=== PATIENT | female | born 1935 | race Caucasian/White ===

== ENCOUNTER 2017-06-09 09:53 | Emergency (ER) | payer OTHER ==
[~2017-06-09] VITALS: Ht 170.2 cm; Wt 79.4 kg
[~2017-06-09 09:53] MED LIST: ACETAMINOPHEN325 MG PO; ADVAIR 100-501 EACH; ALLEGRA ALLERG180 MG; ALPHAGAN P10 ML OPHTHALMIC; ANUSOL1 EACH RC; ARTIFICIAL TEAR15 M1 OPHTHALMIC; ASPIRIN EC81 M1 PO; B COMPLEX-VITA1 EACH PO; CALCIUM 600 +1 EAC1 PO; CIPRO250 M1 PO; CIPROFLOXACIN500 M1 PO; CITRATE OF MAG296 ML PO; FISH OIL 1,2001 EAC3 PO; FLAGYL 250 MG250 MG PO; FLAGYL500 MG PO; FLEXERIL PO; GARLIC OIL1 EACH PO; GLYCOLAX POWDER17 G1; HYDROCODON-ACE1 EAC7 PO; HYDROCODONE-AP1 EAC6 PO; LIPITOR10 MG PO; LISINOPRIL20 MG PO; MEDROLDOSEPACK PO; METRONIDAZOLE GEL TOP; MULTIVITAMINS1 EAC7 PO; NORCO 5-325 TA1 EACH PO; OMEGA-31000 M1 PO; PROAIR HFA8.5 GM IH; RESTASIS1 EACH; SYNTHROID25 MCG PO; SYSTANE 0.3-0.1 EACH; SYSTANE 0.3-0.1 EACH OP; TRAVATAN 0.004%5 ML; ULTRAM 50MG TAB50 MG PO; VALIUM5 MG PO; VITAMIN C + RO500 MG PO; VITAMINC500 PO; ZOFRAN4 MG PO
[2017-06-09] MEDS ORDERED: AMOXICILLIN 50500 MG PO (10:08)
[2017-06-09] MEDS ORDERED: PROMETHAZINE/C118 ML PO (10:09)
[2017-06-09 12:13] LABS: ABSOLUTE EOSINOPHILS 0.1 thou/uL (0.0-0.7); ABSOLUTE LYMPHOCYTES 1.7 thou/uL (0.8-5.3); ABSOLUTE MONOCYTES 0.8 thou/uL (0.0-1.2); ABSOLUTE NEUTROPHILS 3.8 thou/uL (1.6-8.1); BASOPHILS 0.5 %; EOSINOPHILS 0.9 %; HEMATOCRIT 40.7 % (37.0-47.0); HEMOGLOBIN 13.7 gm/dL (12.0-15.0); LYMPHOCYTES 26.4 %; MCH 31.9 pg (26.0-34.0); MCHC 33.6 g/dL (28.0-37.0); MCV 95.1 fL (80.0-100.0); MONOCYTES 11.9 %; MPV 8.8 fl. (7.2-11.1); NUCLEATED RBCS 0 /100WBC; PLATELET COUNT* 162 thou/uL (150-400); POLYS 60.3 %; RBC 4.28 mil/uL (4.20-5.00); RDW-CV 12.9 % (10.5-14.5); WBC 6.4 thou/uL (4.0-11.0)
[2017-06-09] MEDS ORDERED: PREDNISONE 20 M20 M1 PO (12:24)
[2017-06-09] MEDS ORDERED: PROAIR HFA8.5 GM INH (12:24)
[2017-06-09] MEDS ORDERED: TESSALON PERLE100 MG PO (12:24)
[2017-06-09 12:26] LABS: CALCIUM 8.1 mg/dL (8.5-10.1); POTASSIUM 4.6 mmol/L (3.5-5.1)
[2017-06-09 12:30] LABS: ALBUMIN 3.7 g/dL (3.4-5.0); TOTAL BILIRUBIN 0.6 mg/dL (<0.1-1.0); TOTAL PROTEIN 6.9 g/dL (6.4-8.2)
[2017-06-09 13:18] VITALS: BP 106/61
== END 2017-06-09 13:19 | disposition home or self-care (01) ==
LOC: M.ERS 09:53
PROVIDERS: Nurse Practitioner Family
DX: J20.9 Acute bronchitis, unspecified (principal); I10 Essential (primary) hypertension; E03.9 Hypothyroidism, unspecified; E78.00 Pure hypercholesterolemia, unspecified; H40.9 Unspecified glaucoma; Z98.890 Other specified postprocedural states; Z87.19 Personal history of other diseases of the digestive system

== ENCOUNTER 2019-08-05 08:07 | Emergency (ER) | payer OTHER ==
[~2019-08-05] VITALS: Ht 162.6 cm; Wt 81.7 kg
[~2019-08-05 08:07] MED LIST changes: +AMOXICILLIN 50500 MG PO; +PREDNISONE 20 M20 M1 PO; +PROAIR HFA8.5 GM INH; +PROMETHAZINE/C118 ML PO; +TESSALON PERLE100 MG PO
[2019-08-05] MEDS ORDERED: METROGEL-VAGINA70 GM VAG (08:36)
[2019-08-05] MEDS ORDERED: DORZOLAMIDE HCL10 ML OPHTHALMIC (08:37)
[2019-08-05] MEDS ORDERED: VYZULTA5 ML OPHTHALMIC (08:37)
[2019-08-05] MEDS ORDERED: TIMOLOL MALEATE5 M2 OPHTHALMIC (08:37)
[2019-08-05] MEDS ORDERED: MONTELUKAST SODI4 M1 PO (08:37)
[2019-08-05] MEDS ORDERED: FLONASE 0.05%50 MCG NARES (08:38)
[2019-08-05] MEDS ORDERED: CHILDREN'S ZYRT10 M1 PO (08:38)
[2019-08-05] MEDS ORDERED: OMEPRAZOLE40 MG PO (08:38)
[2019-08-05] MEDS ORDERED: FLOVENT HFA10.6 GM INH (08:40)
[2019-08-05 08:56] LABS: ABSOLUTE BASOPHILS 0.1 thou/uL (0.0-0.2); ABSOLUTE EOSINOPHILS 0.2 thou/uL (0.0-0.7); ABSOLUTE LYMPHOCYTES 1.6 thou/uL (0.8-5.3); ABSOLUTE MONOCYTES 0.7 thou/uL (0.0-1.2); BASOPHILS 0.7 %; EOSINOPHILS 2.5 %; HEMATOCRIT 40.2 % (37.0-47.0); HEMOGLOBIN 13.7 gm/dL (12.0-15.0); LYMPHOCYTES 21.3 %; MCH 31.5 pg (26.0-34.0); MCHC 34.2 g/dL (28.0-37.0); MCV 92.2 fL (80.0-100.0); MPV 8.8 fl. (7.2-11.1); NUCLEATED RBCS 0 /100WBC; PLATELET COUNT* 229 thou/uL (150-400); POLYS 66.5 %; RBC 4.36 mil/uL (4.20-5.00); WBC 7.5 thou/uL (4.0-11.0)
[2019-08-05 09:01] LABS: CALCIUM 8.7 mg/dL (8.5-10.1); CREATININE 0.9 mg/dL (0.6-1.3); POTASSIUM 4.2 mmol/L (3.5-5.1)
[2019-08-05 09:08] LABS: URINE BILIRUBIN NEGATIVE (Negative); URINE BLOOD TRACE (Negative); URINE CLARITY CLOUDY; URINE COLOR YELLOW; URINE GLUCOSE-RANDOM NEGATIVE (Negative); URINE KETONES NEGATIVE (Negative); URINE LEUKOCYTES-REFLEX NEGATIVE (Negative); URINE NITRITE-REFLEX NEGATIVE (Negative); URINE PROTEIN NEGATIVE (Negative); URINE SPECIFIC GRAVITY <= 1.005 (1.005-1.030); URINE UROBILINOGEN 0.2 E.U./dl (0.2-1.0)
[2019-08-05 09:15] LABS: BACTERIA-REFLEX >30 Many /HPF (None Seen); CASTS None Seen /LPF (None Seen); CRYSTALS None Seen /LPF (None Seen); MUCUS 0-3 Light strn/LPF (None Seen); SQUAMOUS 0-3 Few /LPF (0-3); URINE RBC 0-2 Rare /HPF (0-2); URINE WBC-REFLEX 0-5 Rare /HPF (0-5)
[2019-08-05 09:19] LABS: ALBUMIN 3.8 g/dL (3.4-5.0); TOTAL BILIRUBIN 0.8 mg/dL (<0.1-1.0); TOTAL PROTEIN 7.4 g/dL (6.4-8.2)
--- NOTE | 2019-08-05 09:48 | EKG ---
[place] [address] ELECTROCARDIOGRAM REPORT Name: KALYAN FINN Room: [facility]#: [id number] Admission: 08/05/19 Attend Phys: Discharge: Date of : 35 Date of Service: 08/05/19 0849 Report #: [id number] THIS REPORT FOR: //name// [facility] ED Test Date: 2019-08-05 Test Time: 08:49:27 Pat Name: KALYAN FINN Department: Room: Gender: F Director [employer]: : 1935 Requested By: Donnie Obando Order Number: [id number] MD: Satish Yepez Measurements Intervals [place] Rate: 64 P: 54 MS: 179 QRS: 10 QRSD: 105 T: 33 QT: 421 QTc: 435 Interpretive Statements Sinus rhythm Probable left atrial enlargement Low voltage, precordial leads Left ventricular hypertrophy Compared to ECG 03/11/2015 11:05:10 Low QRS voltage now present Electronically Signed On 08-05-2019 9:46:58 ASSESSMENT MANAGER by Satish Yepez [email or web address] <ELECTRONICALLY SIGNED> By: Satish Yepez MD, [facility] 08/05/19 0946 0849 0849 Satish Yepez MD, [facility] /EPI
[2019-08-05] MEDS ORDERED: TRAMADOL 50 MG50 MG PO (10:43)
[2019-08-05 10:53] VITALS: BP 138/69
== END 2019-08-05 10:55 | disposition home or self-care (01) ==
LOC: M.ERS 08:07
PROVIDERS: Emergency Medicine
DX: R10.9 Unspecified abdominal pain (principal); I10 Essential (primary) hypertension; E78.00 Pure hypercholesterolemia, unspecified; E03.9 Hypothyroidism, unspecified

== ENCOUNTER 2019-11-15 08:38 | Emergency (ER) | payer OTHER ==
[~2019-11-15] VITALS: Ht 162.6 cm; Wt 81.7 kg
[~2019-11-15 08:38] MED LIST changes: +CHILDREN'S ZYRT10 M1 PO; +DORZOLAMIDE HCL10 ML OPHTHALMIC; +FLONASE 0.05%50 MCG NARES; +FLOVENT HFA10.6 GM INH; +METROGEL-VAGINA70 GM VAG; +MONTELUKAST SODI4 M1 PO; +OMEPRAZOLE40 MG PO; +TIMOLOL MALEATE5 M2 OPHTHALMIC; +TRAMADOL 50 MG50 MG PO; +VYZULTA5 ML OPHTHALMIC
[2019-11-15 09:07] LABS: ABSOLUTE EOSINOPHILS 0.2 thou/uL (0.0-0.7); ABSOLUTE LYMPHOCYTES 0.8 thou/uL (0.8-5.3); ABSOLUTE MONOCYTES 0.7 thou/uL (0.0-1.2); BASOPHILS 0.2 %; EOSINOPHILS 2.8 %; HEMATOCRIT 36.3 % (37.0-47.0); HEMOGLOBIN 12.7 gm/dL (12.0-15.0); LYMPHOCYTES 12.5 %; MCH 32.2 pg (26.0-34.0); MONOCYTES 10.3 %; MPV 8.1 fl. (7.2-11.1); NUCLEATED RBCS 0 /100WBC; PLATELET COUNT* 218 thou/uL (150-400); POLYS 74.2 %; RBC 3.95 mil/uL (4.20-5.00); RDW-CV 14.6 % (10.5-14.5); WBC 6.8 thou/uL (4.0-11.0)
[2019-11-15 09:17] LABS: POTASSIUM 3.8 mmol/L (3.5-5.1)
[2019-11-15 09:34] LABS: ALBUMIN 3.5 g/dL (3.4-5.0); TOTAL BILIRUBIN 0.4 mg/dL (<0.1-1.0); TOTAL PROTEIN 6.9 g/dL (6.4-8.2)
[2019-11-15 09:54] LABS: URINE BILIRUBIN NEGATIVE (Negative); URINE BLOOD TRACE (Negative); URINE CLARITY CLEAR; URINE COLOR YELLOW; URINE GLUCOSE-RANDOM NEGATIVE (Negative); URINE KETONES NEGATIVE (Negative); URINE LEUKOCYTES-REFLEX NEGATIVE (Negative); URINE NITRITE-REFLEX NEGATIVE (Negative); URINE PROTEIN NEGATIVE (Negative); URINE SPECIFIC GRAVITY <= 1.005 (1.005-1.030); URINE UROBILINOGEN 0.2 E.U./dl (0.2-1.0)
[2019-11-15 13:55] VITALS: BP 157/73
--- NOTE | 2019-11-15 15:30 | EKG ---
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 : 1935 Requested By: Josue Castro Order Number: [id number] MD: Forrest Kuhn Measurements Intervals [place] Rate: 77 P: 73 GA: 197 QRS: 12 QRSD: 104 T: 1 QT: 376 QTc: 426 Interpretive Statements Sinus rhythm Probable left atrial enlargement Low voltage, precordial leads Abnormal R-wave progression, early transition Left ventricular hypertrophy Baseline wander in lead(s) V5 Compared to ECG 08/05/2019 08:49:27 No significant changes Electronically Signed On 11-15-2019 15:28:51 CDT by Forrest Kuhn [email or web address] <ELECTRONICALLY SIGNED> By: Forrest Kuhn MD, [facility] 11/15/19 1528 0847 0847 Forrest Kuhn MD, FAC /EPI
== END 2019-11-15 13:55 | disposition home or self-care (01) ==
LOC: M.ERS 08:38
PROVIDERS: Family Medicine
DX: R10.30 Lower abdominal pain, unspecified (principal); I10 Essential (primary) hypertension; E78.00 Pure hypercholesterolemia, unspecified; H40.9 Unspecified glaucoma; R60.0 Localized edema; E03.9 Hypothyroidism, unspecified; Z79.82 Long term (current) use of aspirin; Z79.899 Other long term (current) drug therapy; Z98.49 Cataract extraction status, unspecified eye